=== PATIENT | female | born 1985 | race Caucasian/White ===

== ENCOUNTER 2017-02-15 18:18 | Emergency (ER) | payer MEDICAID ==
[~2017-02-15] VITALS: Ht 157.5 cm; Wt 80.0 kg
[~2017-02-15 18:18] MED LIST: CLARITIN 1010 MG/TAB PO; LEXAPRO 10MG10 MG PO; MOTRIN 800800 MG/TAB PO; PRENATAL1 TA1 PO
[2017-02-15 18:22] VITALS: BP 118/62; TEMP 97.7
[2017-02-15] MEDS ORDERED: CELEXA10 MG PO (18:27)
[2017-02-15] MEDS ORDERED: PROAIR HFA0.09 MG/AC IH (18:27)
[2017-02-15 20:17] VITALS: PULSE 89
== END 2017-02-15 20:17 | disposition home or self-care (01) ==
LOC: COL.ER 18:18
DX: O9A.213 Injury, poisoning and certain other consequences of external causes complicating pregnancy, third trimester (principal); Z3A.34 34 weeks gestation of pregnancy; S80.02XA Contusion of left knee, initial encounter; M25.552 Pain in left hip; W03.XXXA Other fall on same level due to collision with another person, initial encounter; Y92.009 Unspecified place in unspecified non-institutional (private) residence as the place of occurrence of the external cause; O99.333 Smoking (tobacco) complicating pregnancy, third trimester; F17.210 Nicotine dependence, cigarettes, uncomplicated; O99.343 Other mental disorders complicating pregnancy, third trimester; O24.419 Gestational diabetes mellitus in pregnancy, unspecified control; F41.9 Anxiety disorder, unspecified; F32.9 Major depressive disorder, single episode, unspecified; O99.513 Diseases of the respiratory system complicating pregnancy, third trimester; J45.909 Unspecified asthma, uncomplicated

== ENCOUNTER 2017-03-02 19:24 | Outpatient (CLI) | payer MEDICAID ==
[~2017-03-02] VITALS: Ht 157.5 cm; Wt 77.7 kg
[~2017-03-02 19:24] MED LIST changes: +CELEXA10 MG PO; +PROAIR HFA0.09 MG/AC IH
[2017-03-02] MEDS ORDERED: CLARITIN 1010 MG/TAB PO (20:06)
[2017-03-02] MEDS ORDERED: PRENATAL1 TA7 PO (20:06)
[2017-03-02 20:15] VITALS: BP 94/57; PULSE 95; TEMP 98.1
== END 2017-03-02 20:43 | disposition home or self-care (01) ==
LOC: LDR 19:24 → LDRO 19:24
DX: O42.913 Preterm premature rupture of membranes, unspecified as to length of time between rupture and onset of labor, third trimester (principal); Z3A.36 36 weeks gestation of pregnancy
CPT/HCPCS: OP

== ENCOUNTER 2017-03-14 09:28 | Outpatient (CLI) | payer MEDICAID ==
[~2017-03-14] VITALS: Ht 157.5 cm; Wt 78.6 kg
[~2017-03-14 09:28] MED LIST changes: +PRENATAL1 TA7 PO
[2017-03-14 09:35] VITALS: BP 110/59; PULSE 91; TEMP 97.7
[2017-03-14 10:00] VITALS: BP 112/57; PULSE 82
[2017-03-14 10:52] VITALS: BP 108/68; PULSE 96
== END 2017-03-14 11:10 | disposition home or self-care (01) ==
LOC: LDRO 09:28
DX: Z34.83 Encounter for supervision of other normal pregnancy, third trimester (principal); Z3A.38 38 weeks gestation of pregnancy

== ENCOUNTER 2017-03-16 07:14 | Inpatient (IN) | payer MEDICAID ==
[~2017-03-16] VITALS: Ht 157.5 cm; Wt 78.6 kg
[2017-03-19] VITALS (22 sets, daily range): BP systolic 92–121; BP diastolic 51–80; PULSE 96–131; TEMP 97.3–99.1
[2017-03-19 08:58] LABS: HEMOGLOBIN 12.1 g/dl (12.5-16.0); MEAN CELL VOLUME 95 fl (80.0-100.0); MEAN CORPUSCULAR HEMOGLOBIN 32 pg (27.0-31.0); MEAN CORPUSCULAR HGB CONC 34 g/dl (33.0-37.0); MEAN PLATELET VOLUME 10.4 fl (7.4-10.4); PLATELET COUNT 250 K/mm3 (130-400); RED BLOOD COUNT 3.74 M/mm3 (4.10-5.30); REDCELL DISTRIBUTION WIDTH-CV 12.7 % (11.5-14.5)
[2017-03-19 09:12] LABS: ADD PATHOLOGY DIFF REVIEW NO; HEMATOCRIT 35.6 % (37.0-47.0); WHITE BLOOD COUNT 21.9 K/mm3 (4.8-10.8)
[2017-03-19 10:30] LABS: BAND 22 % (0-10); NEUTROPHILS 58 % (42.0-75.2); TOTAL CELLS COUNTED 100
[2017-03-20 00:15] VITALS: BP 102/59; PULSE 84; TEMP 97.6
[2017-03-20 04:27] VITALS: BP 93/48; PULSE 75; TEMP 97.5
[2017-03-20 07:15] VITALS: BP 110/63; PULSE 71; TEMP 97.5
[2017-03-20 07:38] LABS: HEMATOCRIT 32.2 % (37.0-47.0); HEMOGLOBIN 10.7 g/dl (12.5-16.0)
== END 2017-03-20 14:10 | disposition home or self-care (01) | DRG 775 ==
LOC: LDR 03-19 08:46 → OB 03-19 13:15
PROVIDERS: Obstetrics & Gynecology
PROC: 10E0XZZ Delivery of Products of Conception, External Approach (ICD-10-PCS; principal; 2017-03-19)
PROC: 0KQM0ZZ Repair Perineum Muscle, Open Approach (ICD-10-PCS; 2017-03-19)
DX: O24.420 Gestational diabetes mellitus in childbirth, diet controlled (principal); O70.1 Second degree perineal laceration during delivery; O99.334 Smoking (tobacco) complicating childbirth; F17.210 Nicotine dependence, cigarettes, uncomplicated; Z3A.39 39 weeks gestation of pregnancy; Z37.0 Single live birth
CPT/HCPCS: J2400; J2590; J7120

== ENCOUNTER 2017-04-19 16:41 | Emergency (ER) | payer MEDICAID ==
[~2017-04-19] VITALS: Ht 157.5 cm; Wt 68.9 kg
[2017-04-19 16:45] VITALS: BP 133/81; PULSE 81; TEMP 97.9
[2017-04-19] MEDS ORDERED: KLONOPIN 1MG1 MG PO (16:49)
[2017-04-19 17:32] LABS: BASO % 0.5 % (0.0-2.0); EOS # 0.2 (0.0-0.7); EOS % 2.4 % (0-4.0); GRAN # 3.5 (1.4-6.5); GRAN % 56.4 % (42.2-75.2); HEMATOCRIT 42.4 % (37.0-47.0); HEMOGLOBIN 14.3 g/dl (12.5-16.0); LYMPH % 31.8 % (20.0-51.0); MEAN CELL VOLUME 94 fl (80.0-100.0); MEAN CORPUSCULAR HEMOGLOBIN 32 pg (27.0-31.0); MEAN CORPUSCULAR HGB CONC 34 g/dl (33.0-37.0); MEAN PLATELET VOLUME 10.3 fl (7.4-10.4); MONO # 0.5 (0.1-0.6); MONO % 8.6 % (1.7-9.3); PLATELET COUNT 198 K/mm3 (130-400); REDCELL DISTRIBUTION WIDTH-CV 11.9 % (11.5-14.5); WHITE BLOOD COUNT 6.2 K/mm3 (4.8-10.8)
[2017-04-19 17:33] LABS: AMPHETAMINE URINE NEGATIVE; BARBITURATES URINE NEGATIVE; BENZODIAZEPINES URINE NEGATIVE; BUPRENORPHINE URINE NEGATIVE; METHADONE URINE NEGATIVE; OPIATES URINE NEGATIVE; OXYCODONE URINE NEGATIVE; PHENCYCLIDINE URINE NEGATIVE; PROPOXYPHENE URINE NEGATIVE; THC CANNABINOIDS URINE NEGATIVE
[2017-04-19 17:44] LABS: ADJUSTED CALCIUM 9.4 mg/dL (8.4-10.2); ALANINE AMINOTRANSFERASE 43 U/L (9-52); ALBUMIN 4.4 gm/dL (3.5-5.0); ALKALINE PHOSPHATASE 85 U/L (50-136); ANION GAP 9 mmol/L (7-16); BILIRUBIN,TOTAL 0.7 mg/dL (0.0-1.0); BLOOD UREA NITROGEN 7 mg/dL (7-17); CALCIUM 9.7 mg/dL (8.4-10.2); CARBON DIOXIDE 24 mmol/L (22-30); CHLORIDE 109 mmol/L (98-107); CREATININE, serum 0.71 mg/dL (0.52-1.25); GLUCOSE 81 mg/dL (74-106); SODIUM 142 mmol/L (137-145); TOTAL PROTEIN 7.7 gm/dL (6.4-8.2)
[2017-04-19 17:46] LABS: ACETAMINOPHEN < 10 ug/mL (10-30); SALICYLATE < 1.0 mg/dL
== END 2017-04-19 19:34 | disposition home or self-care (01) ==
LOC: COL.ER 16:41
PROVIDERS: Emergency Medicine
DX: F32.9 Major depressive disorder, single episode, unspecified (principal); F41.9 Anxiety disorder, unspecified; R45.851 Suicidal ideations; Z91.5 Personal history of self-harm; J45.909 Unspecified asthma, uncomplicated; F17.200 Nicotine dependence, unspecified, uncomplicated

== ENCOUNTER 2020-11-03 15:40 | Emergency (ER) | payer BC ==
[~2020-11-03] VITALS: Ht 157.5 cm; Wt 90.9 kg
[~2020-11-03 15:40] MED LIST changes: +CENTRUM1 TA1; +CLARITIN 1010 MG/TAB; +DRAMAMINE 50MG50 MG PO; +KLONOPIN 1MG1 MG PO
[2020-11-03 16:30] LABS: BASO # 0.1 (0.0-0.2); BASO % 0.6 % (0.0-2.0); EOS # 0.3 (0.0-0.7); EOS % 2.2 % (0-4.0); GRAN # 6.9 (1.4-6.5); GRAN % 61.9 % (42.2-75.2); HEMATOCRIT 38.6 % (37.0-47.0); HEMOGLOBIN 13.2 g/dl (12.5-16.0); LYMPH # 3.1 (1.2-3.4); LYMPH % 27.9 % (20.0-51.0); MEAN CELL VOLUME 94 fl (80.0-100.0); MEAN CORPUSCULAR HEMOGLOBIN 32 pg (27.0-31.0); MEAN CORPUSCULAR HGB CONC 34 g/dl (33.0-37.0); MEAN PLATELET VOLUME 9.9 fl (7.4-10.4); MONO # 0.8 (0.1-0.6); MONO % 6.9 % (1.7-9.3); PLATELET COUNT 293 K/mm3 (130-400); RED BLOOD COUNT 4.11 M/mm3 (4.10-5.30); REDCELL DISTRIBUTION WIDTH-CV 11.9 % (11.5-14.5)
[2020-11-03 16:39] LABS: ALANINE AMINOTRANSFERASE 47 U/L (4-34); ALBUMIN 4.1 gm/dL (3.5-5.0); ALKALINE PHOSPHATASE 77 U/L (50-136); ANION GAP 7 mmol/L (7-16); AST,SGOT 38 U/L (15-37); BILIRUBIN,TOTAL < 0.1 mg/dL (0.0-1.0); BLOOD UREA NITROGEN 10 mg/dL (7-17); CALCIUM 9.2 mg/dL (8.4-10.2); CARBON DIOXIDE 24 mmol/L (22-30); CHLORIDE 107 mmol/L (98-107); CREATININE, serum 0.58 (0.52-1.25); GLUCOSE 93 mg/dL (74-106); SODIUM 138 mmol/L (137-145); TOTAL PROTEIN 7.1 gm/dL (6.4-8.2)
[2020-11-03 16:41] LABS: PROTHROMBIN TIME 10.6 SECONDS (9.7-12.8)
[2020-11-03 16:44] LABS: PARTIAL THROMBOPLASTIN TIME 31.5 SECONDS (26.0-37.0)
[2020-11-03 16:50] LABS: TROPONIN-I < 0.012 ng/mL (0.000-0.035)
[2020-11-03 17:50] VITALS: BP 140/88; PULSE 89
== END 2020-11-03 17:55 | disposition home or self-care (01) ==
LOC: COL.ER 15:40
PROVIDERS: Family Medicine
DX: R42 Dizziness and giddiness (principal); R51.9 Headache, unspecified; R53.1 Weakness; R07.9 Chest pain, unspecified; R06.02 Shortness of breath; F17.210 Nicotine dependence, cigarettes, uncomplicated; Z88.1 Allergy status to other antibiotic agents; Z88.8 Allergy status to other drugs, medicaments and biological substances

== ENCOUNTER 2021-08-12 08:39 | Emergency (ER) | payer SELFPAY ==
[~2021-08-12] VITALS: Ht 157.5 cm; Wt 88.6 kg
[2021-08-12 09:01] VITALS: TEMP 98.5
[2021-08-12 09:46] LABS: BASO % 0.5 % (0.0-2.0); EOS # 0.2 K/mm3 (0.0-0.7); EOS % 2.1 % (0.0-4.0); GRAN # 5.7 K/mm3 (1.4-6.5); GRAN % 66.1 % (42.2-75.2); HEMATOCRIT 38.5 % (37.0-47.0); HEMOGLOBIN 13.2 g/dl (12.5-16.0); LYMPH # 1.8 K/mm3 (1.2-3.4); LYMPH % 20.6 % (20.0-51.0); MEAN CELL VOLUME 91 fl (80.0-100.0); MEAN CORPUSCULAR HEMOGLOBIN 31 pg (27-31); MEAN CORPUSCULAR HGB CONC 34 g/dl (33.0-37.0); MEAN PLATELET VOLUME 9.5 fl (7.4-10.4); MONO # 0.9 K/mm3 (0.1-0.6); MONO % 10.2 % (1.7-9.3); PLATELET COUNT 285 K/mm3 (130-400); RED BLOOD COUNT 4.23 M/mm3 (4.10-5.30); REDCELL DISTRIBUTION WIDTH-CV 12.3 % (11.5-14.5)
[2021-08-12 10:03] LABS: ALBUMIN 4.2 gm/dL (3.5-5.0); BILIRUBIN,TOTAL 0.4 mg/dL (0.2-1.2); CALCIUM 9.5 mg/dL (8.4-10.2); CREATININE, serum 0.73 mg/dL (0.57-1.11); POTASSIUM 3.8 mmol/L (3.5-4.5); TOTAL PROTEIN 6.9 gm/dL (6.2-8.1)
[2021-08-12] MEDS ORDERED: ZITHROMAX Z PA250 MG PO (11:33)
[2021-08-12] MEDS ORDERED: PREDNISONE20 MG PO (11:33)
[2021-08-12] MEDS ORDERED: PROAIR HFA0.09 MG/AC IH (11:33)
[2021-08-12 11:38] VITALS: BP 146/86; PULSE 88
== END 2021-08-12 11:43 | disposition home or self-care (01) ==
LOC: COL.ER 08:39
PROVIDERS: Personal Emergency Response Attendant
DX: J45.909 Unspecified asthma, uncomplicated (principal); F17.210 Nicotine dependence, cigarettes, uncomplicated; Z86.16 Personal history of COVID-19; Z79.899 Other long term (current) drug therapy
CPT/HCPCS: J2930; J7030